=== PATIENT | male | born 1965 | race Two or more races ===

== ENCOUNTER 2016-11-18 14:47 | Emergency (ER) | payer OTHER ==
[~2016-11-18] VITALS: Ht 170.2 cm; Wt 86.2 kg
[2016-11-18 15:05] VITALS: BP 165/81
[2016-11-18] MEDS ORDERED: Norco 5mg/325mg tab ORAL ONE (15:15)
[2016-11-18] MEDS ORDERED: Bacitracin Oint UD TOPIC ONE (15:15)
[2016-11-18] MEDS ORDERED: Lidocaine 1% Plain 30 ml INJ ONE (15:15)
--- NOTE | 2016-11-18 16:44 | Diagnostic Imaging Report ---
Indication: Pain Findings: 3 views of the right elbow were obtained. There is a nondisplaced fracture of the radial head. The fracture is intra-articular. There is no displacement. Small joint effusion noted. Impression: Acute intra-articular fracture of the radial head
--- NOTE | 2016-11-18 16:45 | Diagnostic Imaging Report ---
Indication: Pain Comparison: None Findings: Right rib series performed. No definite fracture identified. The right lung is clear. Costophrenic angles are sharp. No effusion seen. Impression: Negative right rib series
--- NOTE | 2016-11-18 16:45 | Diagnostic Imaging Report ---
Indication: Pain Findings: 3 views of the left wrist were obtained. Acute nondisplaced fracture of the scaphoid waist demonstrated on multiple views. Soft tissue swelling noted. Impression: Acute scaphoid fracture
[2016-11-18] MEDS ORDERED: TRAMADOL HCL50 MG ORAL (17:35)
[2016-11-18] MEDS ORDERED: IBUPROFEN600 MG ORAL (17:35)
[2016-11-18 17:38] VITALS: BP 156/86
[2016-11-18 17:42] VITALS: BP 156/86
--- NOTE | 2016-11-18 21:58 | Emergency Room Report ---
History of Present Illness General Chief Complaint: Multiple Trauma/Fall Source: Patient Present Illness HPI The patient is a 50-year-old male presenting for multiple areas of pain after falling off a ladder. He states that he was approximately 10 feet off the ground. The patient states that he broke fall with both arms but did hit his head. He denies loss of consciousness. He is now describing pain is an 8/10 dull ache to the left wrist, right ribs, right elbow, and forehead. He noticed bleeding from the R elbow He denies other symptoms including N, V, F, chills, dizziness, blurred vision, CP, SOB Allergies: Coded Allergies: No Known Allergies (Unverified , 11/18/16) Patient History Past Medical History: see triage record Pertinent Family History: none Reviewed Nursing Documentation: PMH: Agreed, PSxH: Agreed Nursing Documentation-PMH Past Medical History: No Stated History Review of Systems All Other Systems: negative except mentioned in HPI Physical Exam Vital Signs Date Time Temp Pulse Resp B/P (MAP) Pulse Ox O2 Delivery O2 Flow Rate FiO2 11/18/16 14:56 98.6 77 20 165/81 98 Room Air Sp02 EP Interpretation: reviewed, normal General Appearance: no apparent distress, alert, GCS 15, non-toxic Head: normocephalic, atraumatic Eyes: bilateral eye normal inspection, bilateral eye PERRL ENT: hearing grossly normal, normal pharynx, no angioedema, normal voice Neck: full range of motion, no bony tend, supple/symm/no masses Respiratory: lungs clear, normal breath sounds, no wheezing, speaking full sentences Cardiovascular #1: regular rate, rhythm, no edema Gastrointestinal: normal bowel sounds, non tender, soft, non-distended, no guarding, no rebound Musculoskeletal: normal range of motion, tender - TTP over the R posterior elbow, L scaphoid, R thoracic lateral ribs, and R forehead Neurologic: alert, oriented x3, responsive, motor strength/tone normal, sensory intact, normal gait, speech normal Psychiatric: judgement/insight normal, memory normal, mood/affect normal, no suicidal/homicidal ideation Skin: other - hematoma to R forehead, laceration - 5cm linear laceration over the R elbow Lymphatic: no adenopathy Procedures Splinting Splinting : Consent: Verbal Location: L arm Pre-Made Type: velcro Splint: thumb spica Pre-Proc Neuro Vasc Exam: normal Post-Proc Neuro Vasc Exam: normal Patient Tolerated: Well Complications: None Laceration/Wound Repair Laceration/Wound Repair : Consent: Verbal Wound Location: upper extremity - R elbow Wound's Depth, Shape: superficial, linear Wound Length (cm): 5 Wound Explored: clean Irrigated w/ Saline (ccs): 100 Betadine Prep?: Yes Anesthesia: 1% Lidocaine Volume Anesthetic (ccs): 5 Wound Debrided: minimal Wound Repaired With: sutures Suture Size/Type: 4:0, nylon Number of Sutures: 6 Layer Closure?: No Sterile Dressing Applied?: Yes Splint Applied?: No Sling Applied?: No Patient Tolerated: Well Complications: None Medical Decision Making PA Attestation Dr. Cooper is my supervising physician. Patient management was discussed with my supervising physician Diagnostic Impression: Primary Impression: Fracture of scaphoid bone of left wrist Qualified Codes: S62.025A - Nondisplaced fracture of middle third of navicular [scaphoid] bone of left wrist, initial encounter for closed fracture Additional Impressions: Scalp hematoma Qualified Codes: S00.03XA - Contusion of scalp, initial encounter Fall Qualified Codes: W19.XXXA - Unspecified fall, initial encounter Elbow laceration Qualified Codes: S51.011A - Laceration without foreign body of right elbow, initial encounter Elbow fracture, right Qualified Codes: S42.401A - Unspecified fracture of lower end of right humerus , initial encounter for closed fracture ER Course The patient is a 50-year-old male presenting for multiple areas of pain after falling off a ladder Ddx considered include but not limited to sprain/strain, fracture, contusion, concussion, ICH, among others PE: NAD There is a R forehead hematoma. No depression. No crepitus No C spine tenderness TTP over the R elbow with laceration. Full AROM. TTP over the L scaphoid. FulL AROM. TTP over the R thoracic ribs. Normal breath sounds. No resp distress The wound was irrigated with normal saline and cleaned with betadine. A 27g needle was used to administer 5mL of lidocaine w.o epi for local anasthesia. 6 sutures were placed with 4-0 Nylon. The wound was well approximated and the patient tolerated the procedure well. The wound was then cleaned and bacitracin was applied. A R arm sling placed. X-rays show fracture of the right radial head nondisplaced. Also show a left wrist scaphoid fracture. Left arm splint placed The patient will be discharged home with a prescription for pain medications to follow up with primary doctor and orthopedics as soon as possible. ER precautions are given Other X-Ray Diagnostic Results Other X-Ray Diagnostic Results #1: X-Ray ordered: R ribs # of Views/Limited Vs Complete: Complete - 5 view Indication: Pain EP Interpretation: Yes Interpretation: no dislocation, no soft tissue swelling, no fractures Impression: No acute disease Electronically Signed by: DO ARIANA Raphael Scribe Text I am acting as scribe for my supervising physician. My supervising physician's interpretation of the chest/Rib xrays are there is no consolidation, no effusion , no acute cardiopulmonary disease, no pneumothorax Other X-Ray Diagnostic Results #2: X-Ray ordered: R elbow # of Views/Limited Vs Complete: 3 View Indication: Pain EP Interpretation: Yes Interpretation: no dislocation, no soft tissue swelling, other - R radial head fracture Electronically Signed by: DO ARIANA Raphael Scribe Text I am acting as scribe for my supervising physician. My supervising physician's interpretation of the Right elbow x-ray shows radial head intra-articular fracture. Nondisplaced. Other X-Ray Diagnostic Results #3: X-Ray ordered: L wrist # of Views/Limited Vs Complete: 3 View Indication: Pain EP Interpretation: Yes Interpretation: no dislocation, no soft tissue swelling, other - fracture Impression: Other - scaphoid fracture Electronically Signed by: DO ARIANA Raphaelibroxane Text I am acting as scribe for my supervising physician. My supervising physician's interpretation of the left wrist x-ray shows scaphoid fracture CT/MRI/US Diagnostic Results CT/MRI/US Diagnostic Results : Imaging Test Ordered: CT head Impression No fracture. No ICH Last Vital Signs Date Time Temp Pulse Resp B/P (MAP) Pulse Ox O2 Delivery O2 Flow Rate FiO2 11/18/16 17:42 98.6 69 20 156/86 98 Room Air Status: improved Disposition: HOME, SELF-CARE Condition: Improved Scripts Tramadol Hcl* (ULTRAM*) 50 Mg Tablet 50 MG ORAL Q6H Y for For Pain, #12 TAB 0 Refills Prov: TIFFANY ORNELAS 11/18/16 Ibuprofen* (MOTRIN*) 600 Mg Tablet 600 MG ORAL Q8H Y for For Pain, #30 TAB 0 Refills Prov: TIFFANY ORNELAS 11/18/16 Patient Instructions: Laceration Care, Adult, Scaphoid Fracture, Wrist, Hematoma Additional Instructions: I discussed my findings with the patient. All questions and concerns have been answered. Treatment and medication compliance have been addressed. I advised the patient that they need to follow up with PMD in 3-5 days. Return to ED if pain remains or worsens, numbness or tingling occurs, new rash is noticed, fever is noticed, or if needed for any reason. Patient verbalized understanding of discharge instructions. Please followup with workers compensation for further care TIFFANY ORNELAS Nov 18, 2016 21:58
--- NOTE | 2016-11-19 08:44 | Diagnostic Imaging Report ---
Indications: Pain status post fall Technique: Spiral acquisitions obtained through the brain. Angled axial and coronal 5 x 5 mm slices were reconstructed. Total dose length product 1378 mGycm. CTDI vol(s) 70 mGy. Dose reduction achieved using automated exposure control Comparison: None Findings: There is a right supraorbital scalp soft tissue contusion. No acute hemorrhage or edema. No mass effect or midline shift. Normal delcid-white differentiation. Intact calvarium. Visualized orbits and sinuses are unremarkable. The mastoids are clear. Impression: Right supraorbital scalp soft tissue contusion Negative for acute intracranial bleed or mass effect This agrees with the preliminary interpretation provided overnight by [facility] service. The CT scanner at [facility] is accredited by the [employer] and the scans are performed using protocols designed to limit radiation exposure to as low as reasonably achievable to attain images of sufficient resolution adequate for diagnostic evaluation.
== END 2016-11-18 18:03 | disposition home or self-care (01) ==
LOC: EMR 15:21
DX: S62.025A Nondisplaced fracture of middle third of navicular [scaphoid] bone of left wrist, initial encounter for closed fracture (principal); S00.03XA Contusion of scalp, initial encounter; S51.011A Laceration without foreign body of right elbow, initial encounter; S42.401A Unspecified fracture of lower end of right humerus, initial encounter for closed fracture; W11.XXXA Fall on and from ladder, initial encounter; Y93.9 Activity, unspecified; Y92.9 Unspecified place or not applicable
CPT/HCPCS: 12002; 70450; 71101; 73080; 73110; 99284; J2001